=== PATIENT | male | born 1955 | race Caucasian/White ===

== ENCOUNTER 2025-03-13 13:30 | Inpatient (IN) | payer MEDICARE, OTHER ==
[~2025-03-13] VITALS: Ht 182.9 cm; Wt 117.5 kg
[2025-03-13 14:09] LABS: PLATELET COUNT (AUTO) 278 K/uL (150-450); RED BLOOD CELL COUNT(AUTO) 2.86 MIL/uL (4.5-6.0); RED CELL DISTRIBUTION WIDTH 14.0 % (11.5-15.0); WHITE BLOOD COUNT (AUTO) 13.4 K/uL (4.3-11.0)
[2025-03-13 14:25] LABS: INR 1.25 (0.91-1.10)
[2025-03-13 14:27] LABS: LACTIC ACID 1.9 mmol/L (0.4-2.0)
[2025-03-13 14:33] LABS: CALCIUM, SERUM 8.6 mg/dL (8.5-10.1); CREATININE 2.6 mg/dL (0.6-1.3); SODIUM SERUM 137 mmol/L (136-145); UREA NITROGEN, BLOOD 53 mg/dL (7-18)
[2025-03-13] MEDS ORDERED: ASCO500T10 PO (14:40)
[2025-03-13] MEDS ORDERED: TAMS-12 PO (14:40)
[2025-03-13] MEDS ORDERED: AMLO-213 PO (14:40)
[2025-03-13] MEDS ORDERED: WARF4TAB72 PO (14:40)
[2025-03-13] MEDS ORDERED: CLON0.1T PO (14:40)
[2025-03-13] MEDS ORDERED: FINA5TAB11 PO (14:40)
[2025-03-13] MEDS ORDERED: BISA10SU11 RC (14:40)
[2025-03-13] MEDS ORDERED: CHOL100043 PO (14:40)
[2025-03-13] MEDS ORDERED: MULT-213 PO (14:40)
[2025-03-13] MEDS ORDERED: DOCU100C36 PO (14:40)
[2025-03-13] MEDS ORDERED: AMIN30LI24 PO (14:40)
[2025-03-13] MEDS ORDERED: NA P133E RC (14:40)
[2025-03-13] MEDS ORDERED: POLY17PO4 PO (14:40)
[2025-03-13] MEDS ORDERED: HYDR12.55 PO (14:40)
[2025-03-13] MEDS ORDERED: FERR325T24 PO (14:40)
[2025-03-13] MEDS ORDERED: DILT-4 PO (14:40)
[2025-03-13] MEDS ORDERED: MAGN400O6 PO (14:40)
[2025-03-13] MEDS ORDERED: LEVO200T8 PO (14:40)
[2025-03-13 14:41] LABS: ASPARTATE AMINOTRANSFERASE 13 U/L (15-37); TOTAL PROTEIN, SERUM 8.2 g/dL (6.4-8.2)
[2025-03-13] MEDS ORDERED: POTASSIUM CHLORIDE 20 MEQ TAB.PRT.SR PO ONE (15:10)
[2025-03-13] MEDS: POTASSIUM CHLORIDE 20 MEQ TAB.PRT.SR PO ONE (15:12)
[2025-03-13 15:13] LABS: APPEARANCE,URINE SLIGHTLY CLOUDY (CLEAR); BLOOD, URINE 3+ Ery/uL (NEGATIVE); LEUKOCYTE ESTERASE ,URINE 2+ (NEGATIVE); NITRITE, URINE NEGATIVE (NEGATIVE); UGLUCOSE NEGATIVE (NEGATIVE)
[2025-03-13 15:30] LABS: ADD URINE CULTURE YES; SQUAMOUS EPITHELIAL CELL,UR Moderate /HPF (None Seen)
[2025-03-13] MEDS ORDERED: ONDANSETRON HCL/PF 4 MG/2 ML VIAL IVP PRN (16:30)
[2025-03-13] MEDS ORDERED: ACETAMINOPHEN 325 MG TABLET PO PRN (16:30)
[2025-03-13] MEDS ORDERED: MAG HYDROX/AL HYDROX/SIMETH 30 ML UDC PO PRN (16:30)
[2025-03-13] MEDS ORDERED: CEFTRIAXONE 1 G in IV D5W 50 ML IV SCH (16:30)
[2025-03-13] MEDS ORDERED: MAGNESIUM HYDROXIDE 30 ML UDC PO PRN ×2 (16:30→17:00)
[2025-03-13] MEDS ORDERED: LORAZEPAM INJ 2 MG/ML VIAL IV PRN (16:30)
[2025-03-13] MEDS ORDERED: BISACODYL SUPP (10 MG) 10 MG/SUPP.RECT SUPP.RECT RC PRN (17:00)
[2025-03-13] MEDS ORDERED: CLONIDINE HCL 0.1 MG TABLET PO PRN (17:00)
[2025-03-13] MEDS ORDERED: NA PHOS,M-B/NA PHOS,DI-BA 1 EA ENEMA RC PRN (17:00)
[2025-03-13] MEDS: DOCUSATE SODIUM 100 MG CAPSULE PO SCH (17:00)
[2025-03-13] MEDS ORDERED: POLYETHYLENE GLYCOL 3350 17 GM POWD.PACK PO PRN (17:00)
[2025-03-13 20:00] VITALS: BP_SYST 108; BP_SYST 117; BP_DIAS 54; BP_DIAS 69; TEMP 97.9; O2SAT 98
[2025-03-13] MEDS: IV NS 0.9% 1,000 ML IV PRN (20:04)
[2025-03-13] MEDS: CEFTRIAXONE 2 G in IV NS 0.9% 100 ML IV SCH (20:04)
[2025-03-13] MEDS: TAMSULOSIN 0.4 MG CAP.SR.24H PO SCH (22:20)
[2025-03-14] VITALS (7 sets, daily range): BP systolic 81–138; BP diastolic 42–76; TEMP 97.7–98.5; O2SAT 95–100
[2025-03-14 06:58] LABS: PLATELET COUNT (AUTO) 232 K/uL (150-450); RED BLOOD CELL COUNT(AUTO) 2.71 MIL/uL (4.5-6.0); RED CELL DISTRIBUTION WIDTH 14.1 % (11.5-15.0); WHITE BLOOD COUNT (AUTO) 9.5 K/uL (4.3-11.0)
[2025-03-14 07:16] LABS: ASPARTATE AMINOTRANSFERASE 11.0 U/L (15-37); CALCIUM, SERUM 8.3 mg/dL (8.5-10.1); CREATININE 2.7 mg/dL (0.6-1.3); PHOSPHORUS 4.0 mg/dL (2.5-4.9); SODIUM SERUM 139.0 mmol/L (136-145); TOTAL PROTEIN, SERUM 7.5 g/dL (6.4-8.2); UREA NITROGEN, BLOOD 52.0 mg/dL (7-18)
[2025-03-14] MEDS: LEVOTHYROXINE SODIUM 100 MCG TABLET PO SCH (07:55)
[2025-03-14] MEDS: PANTOPRAZOLE 40 MG TABLET.DR PO SCH (07:56)
[2025-03-14] MEDS: FERROUS SULFATE (325 MG) 325 MG/TAB TABLET PO SCH (08:45)
[2025-03-14] MEDS: ASCORBIC ACID 500 MG TABLET PO SCH (08:45)
[2025-03-14] MEDS: MULTIVIT W/MINERALS 1 TAB TABLET PO SCH (08:45)
[2025-03-14] MEDS: CHOLECALCIFEROL 1,000 UNIT TABLET (VIT D3) PO SCH (08:45)
[2025-03-14] MEDS: FINASTERIDE (5 MG) 5 MG TABLET PO SCH (08:46)
[2025-03-14] MEDS: AMLODIPINE BESYLATE 10 MG TABLET PO SCH (08:46)
[2025-03-14] MEDS: DILTIAZEM HCL CD 240 MG PO SCH (08:46)
[2025-03-14] MEDS: HYDROCHLOROTHIAZIDE 25 MG TABLET PO SCH (08:47)
[2025-03-14] MEDS: PROSOURCE / PROSTAT (PYXIS) 30 ML UDC PO SCH (08:53)
[2025-03-14] MEDS ORDERED: Z GUARD REMEDY 4 OZ OINT TP PRN (10:00)
[2025-03-14] MEDS: Z GUARD REMEDY 4 OZ OINT TP SCH (11:15)
[2025-03-14 12:52] LABS: CREATININE, URINE 66.1 MG/DL (30.0-125.0); URINE SODIUM, RANDOM 49.0 mmol/l (40-220); URINE TOTAL PROTEIN 229.8 mg/dL (0-11.9)
[2025-03-14] MEDS: POTASSIUM CHLORIDE 20 MEQ TAB.PRT.SR PO ONE (13:25)
[2025-03-14 14:54] LABS: INR 1.34 (0.91-1.10)
[2025-03-14] MEDS: WARFARIN SODIUM 2 MG TABLET PO SCH (17:17)
[2025-03-14] MEDS: WARFARIN SODIUM 2 MG TABLET PO ONE (21:39)
[2025-03-14] MEDS: WARFARIN SODIUM 1 MG TABLET ONE (21:40)
[2025-03-15] VITALS (7 sets, daily range): BP systolic 105–168; BP diastolic 63–147; TEMP 97.7–98.6; O2SAT 97–100
[2025-03-15 06:50] LABS: INR 1.31 (0.91-1.10)
[2025-03-15 06:55] LABS: PLATELET COUNT (AUTO) 237 K/uL (150-450); RED BLOOD CELL COUNT(AUTO) 2.73 MIL/uL (4.5-6.0); RED CELL DISTRIBUTION WIDTH 14.0 % (11.5-15.0); WHITE BLOOD COUNT (AUTO) 8.5 K/uL (4.3-11.0)
[2025-03-15 07:28] LABS: ASPARTATE AMINOTRANSFERASE 12.0 U/L (15-37); CALCIUM, SERUM 8.5 mg/dL (8.5-10.1); CREATININE 2.4 mg/dL (0.6-1.3); PHOSPHORUS 3.7 mg/dL (2.5-4.9); SODIUM SERUM 142.0 mmol/L (136-145); TOTAL PROTEIN, SERUM 7.4 g/dL (6.4-8.2); UREA NITROGEN, BLOOD 50.0 mg/dL (7-18)
[2025-03-15 07:32] LABS: CREATINE KINASE, TOTAL 33.0 U/L (39-308)
[2025-03-15] MEDS ORDERED: CEFTRIAXONE 2 G in IV D5W 100 ML IV SCH ×2 (09:04→18:00)
[2025-03-15] MEDS: POTASSIUM CHLORIDE 20 MEQ TAB.PRT.SR PO SCH (09:28)
[2025-03-15] MEDS ORDERED: DOSE PER PHARMACY (MD SPECIFY MEDICATION) 1 EA IV PRN (10:00)
[2025-03-15] MEDS: WARFARIN SODIUM 2 MG TABLET PO ONE (17:04)
[2025-03-15] MEDS: CEFTAZIDIME 1 G in IV D5W 50 ML IV SCH (21:11)
[2025-03-16] VITALS: BP 101/50; TEMP 97.5; O2SAT 97
[2025-03-16 04:00] VITALS: BP_SYST 110; BP_SYST 112; BP_SYST 95; BP_DIAS 56; BP_DIAS 61; BP_DIAS 66; TEMP 98.2; O2SAT 98
[2025-03-16 05:08] LABS: PTH, INTACT 52 pg/mL (15-65)
[2025-03-16 06:16] LABS: INR 1.31 (0.91-1.10)
[2025-03-16 06:17] LABS: PLATELET COUNT (AUTO) 203 K/uL (150-450); RED BLOOD CELL COUNT(AUTO) 2.52 MIL/uL (4.5-6.0); RED CELL DISTRIBUTION WIDTH 14.3 % (11.5-15.0); WHITE BLOOD COUNT (AUTO) 7.8 K/uL (4.3-11.0)
[2025-03-16 06:30] LABS: CALCIUM, SERUM 8.0 mg/dL (8.5-10.1); CREATININE 2.5 mg/dL (0.6-1.3); PHOSPHORUS 3.3 mg/dL (2.5-4.9); SODIUM SERUM 142.0 mmol/L (136-145); UREA NITROGEN, BLOOD 50.0 mg/dL (7-18)
[2025-03-16 08:00] VITALS: BP 113/49; TEMP 97.9; O2SAT 98
[2025-03-16] MEDS: POTASSIUM CHLORIDE 10 MEQ TABLET.SA PO ONE (09:50)
[2025-03-16] MEDS: SENNOSIDES/DOCUSATE SODIUM 1 TAB TABLET PO SCH (09:50)
[2025-03-16] MEDS: POLYETHYLENE GLYCOL 3350 17 GM POWD.PACK PO SCH (09:53)
[2025-03-16 11:30] VITALS: BP 147/72; TEMP 97.7; O2SAT 98
[2025-03-16 16:00] VITALS: BP 108/72; TEMP 97.9; O2SAT 98
[2025-03-16 20:00] VITALS: BP 117/63; TEMP 98.2; O2SAT 98
[2025-03-17] VITALS (7 sets, daily range): BP systolic 98–136; BP diastolic 55–81; TEMP 97.5–98.2; O2SAT 98–100
[2025-03-17 06:56] LABS: PLATELET COUNT (AUTO) 207 K/uL (150-450); RED BLOOD CELL COUNT(AUTO) 2.44 MIL/uL (4.5-6.0); RED CELL DISTRIBUTION WIDTH 13.9 % (11.5-15.0); WHITE BLOOD COUNT (AUTO) 7.8 K/uL (4.3-11.0)
[2025-03-17 07:01] LABS: INR 1.33 (0.91-1.10)
[2025-03-17 07:10] LABS: ASPARTATE AMINOTRANSFERASE 10.0 U/L (15-37); CALCIUM, SERUM 8.0 mg/dL (8.5-10.1); CREATININE 2.3 mg/dL (0.6-1.3); PHOSPHORUS 3.0 mg/dL (2.5-4.9); SODIUM SERUM 142.0 mmol/L (136-145); TOTAL PROTEIN, SERUM 7.3 g/dL (6.4-8.2); UREA NITROGEN, BLOOD 48.0 mg/dL (7-18)
[2025-03-17] MEDS: FUROSEMIDE 20 MG/2 ML VIAL IV SCH (09:00)
[2025-03-17] MEDS: POTASSIUM CHLORIDE 10 MEQ TABLET.SA PO ONE (09:31)
[2025-03-18] VITALS: BP 131/72; TEMP 98.4; O2SAT 100
[2025-03-18 04:00] VITALS: BP 133/71; TEMP 97.7; O2SAT 100
[2025-03-18 07:30] VITALS: BP 140/76; TEMP 97.9; O2SAT 100
[2025-03-18 07:55] LABS: PLATELET COUNT (AUTO) 217 K/uL (150-450); RED BLOOD CELL COUNT(AUTO) 2.66 MIL/uL (4.5-6.0); RED CELL DISTRIBUTION WIDTH 14.0 % (11.5-15.0); WHITE BLOOD COUNT (AUTO) 7.7 K/uL (4.3-11.0)
[2025-03-18 08:07] LABS: INR 1.33 (0.91-1.10)
[2025-03-18 08:15] LABS: ASPARTATE AMINOTRANSFERASE 13.0 U/L (15-37); CALCIUM, SERUM 8.3 mg/dL (8.5-10.1); CREATININE 2.0 mg/dL (0.6-1.3); PHOSPHORUS 2.9 mg/dL (2.5-4.9); SODIUM SERUM 138.0 mmol/L (136-145); TOTAL PROTEIN, SERUM 7.4 g/dL (6.4-8.2); UREA NITROGEN, BLOOD 48.0 mg/dL (7-18)
[2025-03-18] MEDS: POTASSIUM CHLORIDE 20 MEQ TAB.PRT.SR PO SCH (10:20)
[2025-03-18 11:00] VITALS: BP 140/66; TEMP 97.7; O2SAT 99
[2025-03-18 16:00] VITALS: BP 132/70; TEMP 97.9; O2SAT 97
[2025-03-18 20:00] VITALS: BP 131/76; TEMP 97.9; O2SAT 99
[2025-03-19] VITALS (7 sets, daily range): BP systolic 117–130; BP diastolic 66–79; TEMP 97.7–98.4; O2SAT 96–99
[2025-03-19 07:07] LABS: INR 1.41 (0.91-1.10)
[2025-03-19 07:11] LABS: CALCIUM, SERUM 8.2 mg/dL (8.5-10.1); CREATININE 1.9 mg/dL (0.6-1.3); SODIUM SERUM 143.0 mmol/L (136-145); UREA NITROGEN, BLOOD 44.0 mg/dL (7-18)
[2025-03-19] MEDS ORDERED: DOSING PER PHARMACY-ZOSYN IV 1 EA EA XX PRN (12:00)
[2025-03-19 13:06] LABS: CREATININE, URINE 40.3 MG/DL (30.0-125.0); URINE SODIUM, RANDOM 76.0 mmol/l (40-220); URINE TOTAL PROTEIN 104.5 mg/dL (0-11.9)
[2025-03-19 13:09] LABS: APPEARANCE,URINE CLEAR (CLEAR); BLOOD, URINE TRACE-INTA Ery/uL (NEGATIVE); LEUKOCYTE ESTERASE ,URINE 3+ (NEGATIVE); NITRITE, URINE POSITIVE (NEGATIVE); UGLUCOSE NEGATIVE (NEGATIVE)
[2025-03-19] MEDS: ZOSYN IVPB 3.375 G in IV D5W 50ml IV SCH (13:09)
[2025-03-19 13:10] LABS: ADD URINE CULTURE YES; SQUAMOUS EPITHELIAL CELL,UR Rare /HPF (None Seen)
[2025-03-19 13:11] LABS: EOSINOPHIL,URINE None Seen
[2025-03-19] MEDS: WARFARIN SODIUM 2 MG TABLET PO ONE (16:46)
== END 2025-03-19 17:30 | DRG 73 ==
LOC: ER 13:35 → TELE 16:54
PROVIDERS: ADMIT Nurse Practitioner Family; ATTEND Nurse Practitioner Family
DX: G90.89 Other disorders of autonomic nervous system (principal); N17.0 Acute kidney failure with tubular necrosis; E44.1 Mild protein-calorie malnutrition; K51.30 Ulcerative (chronic) rectosigmoiditis without complications; N13.6 Pyonephrosis; Z16.35 Resistance to multiple antimicrobial drugs; N40.1 Benign prostatic hyperplasia with lower urinary tract symptoms; R33.9 Retention of urine, unspecified; B35.1 Tinea unguium; I70.0 Atherosclerosis of aorta; Z87.891 Personal history of nicotine dependence; Z85.820 Personal history of malignant melanoma of skin; Z87.442 Personal history of urinary calculi; N18.9 Chronic kidney disease, unspecified; I12.9 Hypertensive chronic kidney disease with stage 1 through stage 4 chronic kidney disease, or unspecified chronic kidney disease; M19.90 Unspecified osteoarthritis, unspecified site; E66.01 Morbid (severe) obesity due to excess calories; Z88.0 Allergy status to penicillin; Z86.718 Personal history of other venous thrombosis and embolism; Z79.01 Long term (current) use of anticoagulants; Z79.890 Hormone replacement therapy; Z79.899 Other long term (current) drug therapy; Z68.34 Body mass index [BMI] 34.0-34.9, adult; E88.09 Other disorders of plasma-protein metabolism, not elsewhere classified; B96.5 Pseudomonas (aeruginosa) (mallei) (pseudomallei) as the cause of diseases classified elsewhere; D64.9 Anemia, unspecified; E03.9 Hypothyroidism, unspecified; I25.10 Atherosclerotic heart disease of native coronary artery without angina pectoris; I89.0 Lymphedema, not elsewhere classified; R73.9 Hyperglycemia, unspecified; E87.6 Hypokalemia; I95.1 Orthostatic hypotension; E86.0 Dehydration; K59.00 Constipation, unspecified; L85.3 Xerosis cutis; M89.8X9 Other specified disorders of bone, unspecified site; R60.9 Edema, unspecified; L81.9 Disorder of pigmentation, unspecified
CPT/HCPCS: 36415; 70450-TC; 71045-TC; 76770-TC; 80048-TC; 80053-TC; 80076-TC; 81001; 82378; 82550-TC; 82570-TC; 83605-TC; 83735-TC; 83970; 84100-TC; 84155; 84165; 84300-TC; 84484-TC; 85025-TC; 85610-TC; 85730-TC; 87040-TC; 87081-TC; 87086-TC; 87186-TC; 93307-TC; 93880-TC; 97116-TC; 97530-TC; A4223; A9562; G0378; J0696; J0713; J1938; J2543; J7030; J7060